=== PATIENT | male | born 1990 | race African-American/Black ===

== ENCOUNTER 2023-01-02 16:27 | Emergency (ER) | payer MEDICARE ==
[~2023-01-02] VITALS: Ht 165.1 cm; Wt 59.0 kg
== END 2023-01-02 19:39 | disposition home or self-care (01) ==
LOC: ER 16:31
DX: K59.00 Constipation, unspecified (principal); K29.70 Gastritis, unspecified, without bleeding; F20.9 Schizophrenia, unspecified; F17.210 Nicotine dependence, cigarettes, uncomplicated
CPT/HCPCS: 99282